=== PATIENT | male | born 1960 | race Caucasian/White ===

== ENCOUNTER → 2017-05-01 | Outpatient (CLI) | payer OTHER, BC ==
[~2017-05-01] MED LIST: AMOX-CLAV PO; ASPI325T39 PO; ASPI81TA28 PO; ATOR10TA82 PO; CHOL1CAP57 PO; DEXT-163 PO; LEVO25TA PO; LISI1TAB3 PO; MELO15TA10 PO; MESA1.2T PO; MISCCAP80 PO; MULT-506 PO; OMEG10007 PO; PRLSR20 PO; RANI300T2 PO; ZNTT/150 PO
--- NOTE | 2017-05-01 08:03 | DIAGNOSTIC IMAGING REPORT ---
FUSION CT SINUSES W/O CLINICAL HISTORY: J32.9 Chronic sinusitis COMPARISON STUDY: No previous studies for comparison. FINDINGS: No orbital masses are visualized in this noncontrast study. There is no hydrocephalus. The right mastoid appears normal. There is opacification of several left anterior inferior mastoid air cells. The middle ear cavities appear symmetrically aerated. There is bilateral maxillary sinus mucosal thickening with bilateral maxillary sinus polyp/retention cyst. There is mild sphenoid sinus mucosal thickening. There is mild ethmoid sinus mucosal thickening. Frontal sinuses appear clear. There is partial pneumatization left middle turbinate. The left ostiomeatal unit appears patent. The ostiomeatal infundibular portions the right ostiomeatal unit are occluded by soft tissue. There is mild nasal septal deviation to the right. Each olfactory fossa measures 4 mm in depth. The left frontal recess appears occluded by soft tissue.. IMPRESSION: 1. Maxillary sinus mucosal thickening with bilateral retention cyst/inflammatory polyps 2. Partial pneumatization left middle turbinate 3. Nasal septal deviation to the right 4. Left ostiomeatal unit is patent 5. 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 Electronically signed by: Sebastien Vera M.D. 05/01/2017 8:02 AM Dictated Date/Time: 05/01/2017 7:53 AM
== END | disposition home or self-care (01) ==
LOC: C.CTS 07:12
DX: J32.9 Chronic sinusitis, unspecified (principal)

== ENCOUNTER → 2017-05-07 | Outpatient (CLI) | payer OTHER, BC ==
[2017-05-07 17:39] LABS: BASO % 0.1 %; BASO ABS # 0.01 K/uL (0-0.2); COMPLETE YES; HEMATOCRIT 43.3 % (42-52); IG% 0.1 %; LYMPH % 24.5 %; LYMPH ABS # 1.66 K/uL (1.2-3.4); MEAN CELL VOLUME 92.5 fL (80-100); MEAN CORPUSCULAR HEMOGLOBIN 31.2 pg (25-34); MEAN CORPUSCULAR HGB CONC 33.7 g/dl (32-36); MEAN PLATELET VOLUME 11.5 fL (7.4-10.4); MONO % 8.3 %; PLATELET COUNT 286 K/uL (130-400); RED BLOOD COUNT 4.68 M/uL (4.7-6.1); WHITE BLOOD COUNT 6.77 K/uL (4.8-10.8)
[2017-05-07 18:03] LABS: ALT/SGPT 35 U/L (12-78); AST/SGOT 17 U/L (15-37); BLOOD UREA NITROGEN 13 mg/dl (7-18); BUN/CREATININE RATIO 13.5 (10-20); CALCIUM 8.8 mg/dl (8.5-10.1); CARBON DIOXIDE 24 mmol/L (21-32); CHLORIDE 106 mmol/L (98-107); CREATININE 0.95 mg/dl (0.60-1.40); GLUCOSE 107 mg/dl (70-99); HDL CHOLESTEROL 53 mg/dl; POTASSIUM 3.9 mmol/L (3.5-5.1); SODIUM 139 mmol/L (136-145)
[2017-05-07 18:14] LABS: ALB/GLOB RATIO 1.1 (0.9-2); ALKALINE PHOSPHATASE 49 U/L (45-117); CHOLESTEROL 195 mg/dl (0-200); CHOLESTEROL/HDL RATIO 3.7; LDL CHOLESTEROL CALCULATED 102 mg/dl; TRIGLYCERIDES 201 mg/dl (0-150); VERY LOW DENSITY LIPOPROT CALC 40 mg/dl
[2017-05-08 08:02] LABS: ESTIMATED AVERAGE GLUCOSE 128 mg/dl; HA1C FLAG Normal (Normal)
== END | disposition home or self-care (01) ==
LOC: C.LABBFT 10:57
PROVIDERS: ATTEND Internal Medicine
DX: Z00.00 Encounter for general adult medical examination without abnormal findings (principal); R73.01 Impaired fasting glucose; K75.81 Nonalcoholic steatohepatitis (NASH); K50.00 Crohn's disease of small intestine without complications; E78.5 Hyperlipidemia, unspecified; I10 Essential (primary) hypertension; E03.9 Hypothyroidism, unspecified

== ENCOUNTER → 2017-07-23 | Outpatient (CLI) | payer OTHER, BC ==
[~2017-07-23] MED LIST changes: -AMOX-CLAV PO; -ASPI325T39 PO; -ATOR10TA82 PO; +ATOR10TA88 PO; -DEXT-163 PO; -PRLSR20 PO; -RANI300T2 PO
== END | disposition home or self-care (01) ==
LOC: C.PATHSPEC 17:23
PROVIDERS: ATTEND Plastic Surgery
DX: L72.0 Epidermal cyst (principal)

== ENCOUNTER → 2017-07-29 | Outpatient (CLI) | payer OTHER, BC ==
[2017-07-29 17:25] LABS: BASO % 0.3 %; BASO ABS # 0.03 K/uL (0-0.2); COMPLETE YES; EOS % 7.5 %; HEMATOCRIT 44.8 % (42-52); IG% 0.1 %; LYMPH % 28.6 %; LYMPH ABS # 2.46 K/uL (1.2-3.4); MEAN CELL VOLUME 91.2 fL (80-100); MEAN CORPUSCULAR HEMOGLOBIN 31.4 pg (25-34); MEAN CORPUSCULAR HGB CONC 34.4 g/dl (32-36); MEAN PLATELET VOLUME 11.6 fL (7.4-10.4); MONO % 10.9 %; NEUT % 52.6 %; PLATELET COUNT 308 K/uL (130-400); RED BLOOD COUNT 4.91 M/uL (4.7-6.1); WHITE BLOOD COUNT 8.61 K/uL (4.8-10.8)
[2017-07-29 17:31] LABS: POTASSIUM 4.5 mmol/L (3.5-5.1)
[2017-07-29 17:42] LABS: INR 0.9 (0.9-1.1)
== END | disposition home or self-care (01) ==
LOC: C.LABBFT 11:27
DX: Z01.818 Encounter for other preprocedural examination (principal)

== ENCOUNTER → 2017-08-04 | Day surgery (SDC) | payer OTHER, BC ==
[2017-06-27 15:08] VITALS: Ht 175.3 cm; Wt 81.8 kg
[~2017-08-04] VITALS: Ht 175.3 cm; Wt 81.8 kg
[~2017-08-04] MED LIST changes: +ATROPINE SULFATE 0.1 MG/ML 5ML SYR IV PRN; +CEFAZOLIN 2000 MG/60 ML D5W IV SCH; +EpHEDrine SULFATE INJ 50 MG/ML AMP IV PRN; +EpINEphrine INJ 1MG/ML AMP 1 MG/ML AMP ONE; +FENTANYL CITRATE INJ 50 MCG/1 ML 2 ML VIAL IV PRN; +FENTANYL CITRATE INJ 50 MCG/1 ML 2 ML VIAL ONE; +FLUMAZENIL 0.1 MG/1 ML 10 ML VIAL IV PRN; +HYDROmorphone INJ 2 MG/ML SYR/VIAL IV PRN; +LABETALOL HCL IV 5 MG/ML 20ML IV PRN; +LACTATED RINGER'S 1000ML 1,000 ML IV SCH; +LIDOCAINE 4% MPF SOAK 5 ML = 1 DOSE TOP ONE; +LIDOCAINE/EPINEPHRINE 1% INJ 50 ML VIAL ONE; +MEPERIDINE HCL 25 MG/ML CARP IV PRN; +MIDAZOLAM HCL 1 MG/ML 2ML VIAL ONE; +NALOXONE HCL 0.4 MG/1 ML VIAL/CARP IV PRN; +ONDANSETRON INJ 2 MG/ML 2 ML VIAL IV PRN; +OXYMETAZOLINE HCL 0.05% NA SPR 15 ML BTL SCH; +PHENYLEPHRINE 100MCG/ML 5ML SYR IV PRN
[2017-08-04 08:09] VITALS: BP 146/104; PULSE 55; TEMP 36.8; O2SAT 95
--- NOTE | 2017-08-04 09:25 | Progress Note ---
Progress Note Date of Service Aug 04, 2017. Progress Note PATIENT HAS BEEN TAKING MESALAMINE WHICH IS AN NSAID. ALSO, HE TOOK MOBIC PERIODICALLY WELL. SURGERY CANCELLED AND WILL BE RESCHEDULED WHEN HE HAS BEEN OFF OF THESE FOR 2 WEEKS.
--- NOTE | 2017-08-04 09:58 | Anesthesiology Progress Note ---
Anesthesia Progress Note Date of Service Aug 04, 2017. Progress Notes The patient was cancelled for surgery by Dr. Jung because he took Mobic recently.
== END | disposition home or self-care (01) ==
LOC: X.SURG 07:51
DX: J32.9 Chronic sinusitis, unspecified (principal); Z53.8 Procedure and treatment not carried out for other reasons

== ENCOUNTER → 2017-11-07 | Outpatient (CLI) | payer OTHER, BC ==
[~2017-11-07] MED LIST changes: +ATOR10TA82 PO; -ATOR10TA88 PO; -ATROPINE SULFATE 0.1 MG/ML 5ML SYR IV PRN; -CEFAZOLIN 2000 MG/60 ML D5W IV SCH; +DEXT-163 PO; -EpHEDrine SULFATE INJ 50 MG/ML AMP IV PRN; -EpINEphrine INJ 1MG/ML AMP 1 MG/ML AMP ONE; -FENTANYL CITRATE INJ 50 MCG/1 ML 2 ML VIAL IV PRN; -FENTANYL CITRATE INJ 50 MCG/1 ML 2 ML VIAL ONE; -FLUMAZENIL 0.1 MG/1 ML 10 ML VIAL IV PRN; -HYDROmorphone INJ 2 MG/ML SYR/VIAL IV PRN; -LABETALOL HCL IV 5 MG/ML 20ML IV PRN; -LACTATED RINGER'S 1000ML 1,000 ML IV SCH; -LIDOCAINE 4% MPF SOAK 5 ML = 1 DOSE TOP ONE; -LIDOCAINE/EPINEPHRINE 1% INJ 50 ML VIAL ONE; +LISI-863 PO; -LISI1TAB3 PO; -MELO15TA10 PO; -MEPERIDINE HCL 25 MG/ML CARP IV PRN; -MIDAZOLAM HCL 1 MG/ML 2ML VIAL ONE; -NALOXONE HCL 0.4 MG/1 ML VIAL/CARP IV PRN; -ONDANSETRON INJ 2 MG/ML 2 ML VIAL IV PRN; -OXYMETAZOLINE HCL 0.05% NA SPR 15 ML BTL SCH; -PHENYLEPHRINE 100MCG/ML 5ML SYR IV PRN; +RANI150T85 PO; -ZNTT/150 PO
[2017-11-07 12:29] LABS: HEMOGLOBIN A1C 5.9 % (4.5-5.6)
[2017-11-07 12:33] LABS: ALBUMIN 3.7 gm/dl (3.4-5.0); ALT/SGPT 33 U/L (12-78); BLOOD UREA NITROGEN 13 mg/dl (7-18); CALCIUM 9.2 mg/dl (8.5-10.1); CARBON DIOXIDE 27 mmol/L (21-32); CREATININE 0.95 mg/dl (0.60-1.40); GLUCOSE 124 mg/dl (70-99); POTASSIUM 3.7 mmol/L (3.5-5.1); SODIUM 135 mmol/L (136-145)
[2017-11-07 12:45] LABS: ALKALINE PHOSPHATASE 74 U/L (45-117); AST/SGOT 20 U/L (15-37); CHOLESTEROL 184 mg/dl (0-200); LDL CHOLESTEROL CALCULATED 100 mg/dl; TOTAL PROTEIN 7.4 gm/dl (6.4-8.2)
== END | disposition home or self-care (01) ==
LOC: C.LABBFT 10:29
PROVIDERS: ATTEND Internal Medicine
DX: Z00.00 Encounter for general adult medical examination without abnormal findings (principal); R73.01 Impaired fasting glucose; E78.5 Hyperlipidemia, unspecified; I10 Essential (primary) hypertension; E03.9 Hypothyroidism, unspecified; L72.3 Sebaceous cyst